=== PATIENT | female | born 1975 | race Caucasian/White ===

== ENCOUNTER → 2021-08-23 | Outpatient (CLI) | payer BC ==
[~2021-08-23] MED LIST: HYDR50CA3 PO
[2021-08-23 12:28] LABS: BASOPHILS % (AUTO) 0 % (0-10); EOSINOPHILS # (AUTO) 0.1 10^3/uL (0.0-0.3); EOSINOPHILS % (AUTO) 1 % (0-10); HEMATOCRIT 44 % (35-52); HEMOGLOBIN 14.5 g/dL (11.5-16.0); LYMPHOCYTES % (AUTO) 38 % (12-44); MEAN CORPUSCULAR HEMOGLOBIN 32 pg (25-34); MEAN CORPUSCULAR HGB CONC 33 g/dL (32-36); MEAN CORPUSCULAR VOLUME 96 fL (80-99); MEAN PLATELET VOLUME 10.1 fL (9.0-12.2); MONOCYTES # (AUTO) 0.4 10^3/uL (0.0-1.0); MONOCYTES % (AUTO) 8 % (0-12); NEUTROPHILS # (AUTO) 2.7 10^3/uL (1.8-7.8); NEUTROPHILS % (AUTO) 52 % (42-75); PLATELET COUNT 288 10^3/uL (130-400); WHITE BLOOD COUNT 5.2 10^3/uL (4.3-11.0)
[2021-08-23 12:28] LABS: BILIRUBIN,URINE NEGATIVE (NEGATIVE); CLARITY,URINE CLEAR; COLOR,URINE YELLOW; GLUCOSE, URINE (UA) NEGATIVE (NEGATIVE); KETONES,URINE NEGATIVE (NEGATIVE); LEUKOCYTE ESTERASE ,URINE NEGATIVE (NEGATIVE); NITRITE,URINE NEGATIVE (NEGATIVE); PROTEIN,URINE NEGATIVE (NEGATIVE)
[2021-08-23 12:58] LABS: BACTERIA,URINE TRACE /HPF; WBC,URINE 0-2 /HPF
== END ==
LOC: LABNPT 12:01
PROVIDERS: ATTEND Obstetrics & Gynecology
DX: N93.9 Abnormal uterine and vaginal bleeding, unspecified (principal); R10.2 Pelvic and perineal pain
CPT/HCPCS: 81000; 84443; 85025; 87491; 87591

== ENCOUNTER → 2021-08-30 | Outpatient (CLI) | payer BC ==
--- NOTE | 2021-08-30 17:03 | Diagnostic Imaging Report ---
PROCEDURE: US non-OB pelvis comp/trans. TECHNIQUE: Multiple realtime grayscale images were obtained of the pelvis in various projections, endovaginally. Transabdominal imaging was also performed. INDICATION: Abnormal uterine bleeding. COMPARISON: None. FINDINGS: The uterus measures 9.6 x 6.3 x 8.4 cm in size. It is anteverted. There is a heterogeneous region in the uterus measuring up to 2.1 cm in diameter, may represent a fibroid. This is located in the posterior wall of the lower uterus. The endometrium measures 9 mm in thickness which is within normal limits for a premenopausal female. There are numerous nabothian cysts. The right ovary measures 2.8 x 2.0 x 1.5 cm and the left ovary measures 2.0 x 0.8 x 1.6 cm. Blood flow is seen in the ovaries, bilaterally. No free fluid is seen. There is a pocket of fluid in the right adnexa which measures up to 6.0 x 2.0 x 2.1 cm in size. This appears to be distinct from the ovary. IMPRESSION: 1. No significant endometrial thickening. Heterogeneous lesion in the posterior uterus likely represents a fibroid. 2. Normal-appearing ovaries, bilaterally. 3. Area of fluid in the right adnexa appears distinct from the right ovary. This could represent a loop of fluid-filled bowel or lymphocele, less likely a distended fallopian tube or abscess. Dictated by: Dictated on workstation # [id number]
== END ==
LOC: RAD 13:47
PROVIDERS: ATTEND Obstetrics & Gynecology
DX: N93.9 Abnormal uterine and vaginal bleeding, unspecified (principal)
CPT/HCPCS: 76830; 76856

== ENCOUNTER 2021-10-08 05:33 | Outpatient (CLI) | payer BC ==
[~2021-10-08] VITALS: Ht 160 cm; Wt 76.4 kg
== END 2021-10-10 12:35 | disposition home or self-care (01) ==
LOC: PREOP 05:33
PROVIDERS: ATTEND Obstetrics & Gynecology
DX: Z01.818 Encounter for other preprocedural examination (principal)

== ENCOUNTER 2021-10-15 07:51 | Day surgery (SDC) | payer BC ==
[~2021-10-15] VITALS: Ht 160 cm; Wt 76.4 kg
[2021-10-15] VITALS (10 sets, daily range): BP systolic 105–130; BP diastolic 58–72
[2021-10-15] MEDS ORDERED: LACTATED RINGERS 1,000 ML IV PRN (08:15)
[2021-10-15 09:23] LABS: BASOPHILS % (AUTO) 0 % (0-10); EOSINOPHILS # (AUTO) 0.1 10^3/uL (0.0-0.3); EOSINOPHILS % (AUTO) 1 % (0-10); HEMATOCRIT 42 % (35-52); LYMPHOCYTES # (AUTO) 1.7 10^3/uL (1.0-4.0); LYMPHOCYTES % (AUTO) 33 % (12-44); MEAN CORPUSCULAR HEMOGLOBIN 32 pg (25-34); MEAN CORPUSCULAR HGB CONC 34 g/dL (32-36); MEAN CORPUSCULAR VOLUME 96 fL (80-99); MEAN PLATELET VOLUME 10.2 fL (9.0-12.2); MONOCYTES # (AUTO) 0.3 10^3/uL (0.0-1.0); MONOCYTES % (AUTO) 6 % (0-12); NEUTROPHILS # (AUTO) 3.2 10^3/uL (1.8-7.8); NEUTROPHILS % (AUTO) 60 % (42-75); PLATELET COUNT 267 10^3/uL (130-400); WHITE BLOOD COUNT 5.3 10^3/uL (4.3-11.0)
[2021-10-15] MEDS ORDERED: MIDAZOLAM 2 MG/2 ML (VERSED) VIAL ONE (09:31)
[2021-10-15] MEDS ORDERED: ONDANSETRON 4 MG/2 ML (SDV) Z0FRAN ONE (09:31)
[2021-10-15] MEDS ORDERED: proPOfol 200 MG/20 ML (DIPRIVAN) VIAL IV ONE (09:31)
[2021-10-15] MEDS ORDERED: fentaNYL INJ 100 MCG/2 ML AMP ONE (09:31)
[2021-10-15] MEDS ORDERED: LIDOCAINE PF 2% 5 ML (XYLOCAINE) VIAL ONE (09:31)
[2021-10-15] MEDS ORDERED: BUPIVACAINE 0.25% 10 ML (SENSORCAINE) VIAL ONE (09:51)
--- NOTE | 2021-10-15 10:05 | Progress Note-Pre Operative ---
Pre-Operative Progress Note H&P Reviewed The H&P was reviewed, patient examined and no changes noted. Date Seen by Provider: Oct 15, 2021 Time Seen by Provider: : Date H&P Reviewed: Oct 15, 2021 Time H&P Reviewed: : Pre-Operative Diagnosis: ARMANDO GALVIN DO Oct 15, 2021 10:05
[2021-10-15] MEDS ORDERED: IBUP-1773 PO (10:07)
--- NOTE | 2021-10-15 10:07 | Discharge Inst-Women's Service ---
Discharge Inst-Women's Serv Depart Medication/Instructions New, Converted or Re-Newed RX: Transmitted to Pharmacy Problems Reviewed?: Yes Consults/Follow Up Additional Follow Up: Yes Orders/Referrals Dr. Stratton in 10-14 days Activity Activity: Activity as Tolerated Driving Instructions: No Driving for 1 Week NO SMOKING: NO SMOKING Nothing Inside Vagina: No Douching, No Scenic, No Tampons Diet Discharge Diet: No Restrictions Symptoms to Report to : Bleeding Excessive, Pain Increased, Fever Over 101 Degrees F, Vaginal Bleeding Increase, Questions/Concerns For Any Problems or Questions: Contact Your Physician ARMANDO STRATTON DO Oct 15, 2021 10:07
[2021-10-15] MEDS ORDERED: D5 LR IV SOLUTION 1,000 ML IV SCH (10:15)
[2021-10-15] MEDS ORDERED: KETOROLAC 30 MG/ML VIAL IVP ONE (10:15)
[2021-10-15] MEDS ORDERED: ONDANSETRON 4 MG/2 ML (SDV) Z0FRAN IVP PRN ×2 (10:15→10:45)
[2021-10-15] MEDS ORDERED: SEVOFLURANE (ULTANE) 15 ML INHAL SOLN ONE (10:18)
[2021-10-15] MEDS ORDERED: morphine INJ 10 MG/ML 1ML (SYR OR VIAL) IVP ONE (10:45)
--- NOTE | 2021-10-15 12:17 | Anesthesia-General Post-Op ---
General Patient Condition Mental Status/LOC: Same as Preop Cardiovascular: Satisfactory Nausea/Vomiting: Absent Respiratory: Satisfactory Pain: Controlled Complications: Absent Post Op Complications Complications None Follow Up Care/Instructions Patient Instructions None needed. Anesthesia/Patient Condition Patient Condition Patient was doing well in PACU, no complaints, stable vital signs, no apparent adverse anesthesia problems. No complications reported per nursing. KUNAL LÓPEZ 27, 2022 12:17
--- NOTE | 2021-10-15 15:18 | OPERATIVE REPORT ---
DATE OF SERVICE: PREOPERATIVE DIAGNOSES: A 45-year-old female with abnormal uterine bleeding. POSTOPERATIVE DIAGNOSES: A 45-year-old female with abnormal uterine bleeding. PROCEDURE: D and C. SURGEON: Armando Stratton DO ANESTHESIA: LMA general. ESTIMATED BLOOD LOSS: Minimal. URINE OUTPUT: 100 mL drained at the start of the procedure. FLUIDS: 700 mL lactated Ringer's solution. FINDINGS: A grossly normal appearing external female genitalia. SPECIMEN SENT: Endometrial curettings. INDICATIONS FOR PROCEDURE: This is a 45-year-old female is a patient who had sought care in my office for abnormal uterine bleeding. She was seeking definitive measures as she had had conservative measures taken in the past without any benefit in her symptoms. I discussed with the patient need for endometrial sampling. I discussed other potential curative and diagnostic properties with doing a D and C versus endometrial biopsy in the office, the patient wished to proceed with D and C. Risks of the procedure were discussed with the patient in detail and after all of her questions were answered, consent was obtained, the patient was taken to the operating room. OPERATIVE REPORT IN DETAIL: Once in the operating room, anesthesia was found to be adequate. She was placed in the dorsal lithotomy position, prepped and draped in normal sterile fashion. Timeout was performed. The bladder was drained using straight catheterization. A weighted speculum inserted to the patient's vagina. Right angle retractor was used to visualize the cervix and 12 o'clock position using a long Allis clamp. I then performed paracervical block at 3 and 9 o'clock positions on the cervix. Care was taken to aspirate for injecting 5 mL of 0.25% Marcaine are injected at each site. I then gently sound the uterine cavity, depth was found to be 8 cm. I then gently dilated the cervix using Hanks dilators to maximum dilatation approximately 1 cm, at which point I performed a gentle curettage of all endometrial surfaces using a small endometrial curette. All of this tissue was collected and sent as endometrial curettings. I then removed all the instruments from the patient's vagina. The patient tolerated the procedure well and was taken to recovery area in stable condition. Lap and sponge counts were correct at the end of procedure. Instrument counts correct as well. Job ID: [id number] DocumentID: [id number] Dictated Date: 10/15/2021 10:38:56 Parking Line Painter Date: 10/15/2021 15:17:57 Dictated By: ARMANDO STRATTON DO
== END 2021-10-15 12:07 | disposition home or self-care (01) ==
LOC: SDC 07:51
PROVIDERS: ATTEND Obstetrics & Gynecology
DX: N85.00 Endometrial hyperplasia, unspecified (principal); D25.0 Submucous leiomyoma of uterus; F17.210 Nicotine dependence, cigarettes, uncomplicated; E66.9 Obesity, unspecified; Z68.29 Body mass index [BMI] 29.0-29.9, adult
CPT/HCPCS: 36415; 84703; 85025; 86850; 86900; 86901; 87081

== ENCOUNTER → 2021-12-10 | Outpatient (CLI) | payer BC ==
[~2021-12-10] MED LIST changes: +IBUP-1773 PO
== END | disposition home or self-care (01) ==
LOC: PREOP 05:27
PROVIDERS: ATTEND Obstetrics & Gynecology
DX: Z01.818 Encounter for other preprocedural examination (principal)

== ENCOUNTER 2021-12-17 05:37 | Day surgery (SDC) | payer BC ==
[~2021-12-17] VITALS: Ht 160 cm; Wt 72.6 kg
[2021-12-17] VITALS (13 sets, daily range): BP systolic 98–154; BP diastolic 54–88
[2021-12-17] MEDS ORDERED: BUPIVACAINE 0.25% 30 ML (SENSORCAINE) VIAL ONE (06:22)
[2021-12-17] MEDS ORDERED: ceFAZolin INJECTION 2,000 MG in NS (IVPB) 50 ML IV SCH (06:30)
[2021-12-17] MEDS ORDERED: metroNIDAZOLE 500MG/100ML IVPB 100 ML IV ONE (06:30)
[2021-12-17] MEDS: LACTATED RINGERS 1,000 ML IV PRN ×3 (06:36→09:18)
[2021-12-17 06:55] LABS: BASOPHILS % (AUTO) 0 % (0-10); EOSINOPHILS # (AUTO) 0.1 10^3/uL (0.0-0.3); EOSINOPHILS % (AUTO) 2 % (0-10); HEMATOCRIT 45 % (35-52); HEMOGLOBIN 15.4 g/dL (11.5-16.0); LYMPHOCYTES # (AUTO) 1.8 10^3/uL (1.0-4.0); LYMPHOCYTES % (AUTO) 34 % (12-44); MEAN CORPUSCULAR HEMOGLOBIN 32 pg (25-34); MEAN CORPUSCULAR HGB CONC 35 g/dL (32-36); MEAN CORPUSCULAR VOLUME 94 fL (80-99); MONOCYTES # (AUTO) 0.4 10^3/uL (0.0-1.0); MONOCYTES % (AUTO) 8 % (0-12); NEUTROPHILS # (AUTO) 2.9 10^3/uL (1.8-7.8); NEUTROPHILS % (AUTO) 56 % (42-75); PLATELET COUNT 311 10^3/uL (130-400); WHITE BLOOD COUNT 5.2 10^3/uL (4.3-11.0)
[2021-12-17] MEDS ORDERED: BUPIVACAINE 0.25% 30 ML (SENSORCAINE) VIAL IJ ONE (06:55)
[2021-12-17] MEDS ORDERED: MIDAZOLAM 2 MG/2 ML (VERSED) VIAL ONE (07:00)
[2021-12-17] MEDS ORDERED: fentaNYL INJ 100 MCG/2 ML AMP ONE (07:00)
[2021-12-17] MEDS ORDERED: ceFAZolin 2 GM IV Premixed 50 ML IV ONE (07:00)
--- NOTE | 2021-12-17 07:22 | Discharge Inst-Women's Service ---
Discharge Inst-Women's Serv Depart Medication/Instructions New, Converted or Re-Newed RX: Transmitted to Pharmacy Problems Reviewed?: Yes Consults/Follow Up Additional Follow Up: Yes Orders/Referrals Dr. Armstrong/Trinity in 7-10 days and in 8 weeks Activity Activity: Activity as Tolerated Driving Instructions: No Driving for 1 Week NO SMOKING: NO SMOKING Nothing Inside Vagina: No Douching, No [place], No Tampons Diet Discharge Diet: No Restrictions Symptoms to Report to : Bleeding Excessive, Pain Increased, Fever Over 101 Degrees F, Vaginal Bleeding Increase, Questions/Concerns For Any Problems or Questions: Contact Your Physician Skin/Wound Care Infection Signs and Symptoms: Increased Redness, Foul Odor of Wound, Increased Drainage, Skin Itchy or Has a Rash, Increased Swelling, Temperature Above 101 F Operative Area Clean and Dry: Keep Incision Clean/Dry Stitches/Keira/Dermabond: Dermabond, Care of Stitches Bathing Instructions: ARMANDO Muñoz DO Dec 17, 2021 07:22
[2021-12-17] MEDS ORDERED: HYDR-34 PO (07:24)
[2021-12-17] MEDS ORDERED: SIME80TA16 PO (07:24)
[2021-12-17] MEDS ORDERED: IBUP-844 PO (07:24)
[2021-12-17] MEDS ORDERED: DOCU100C37 PO (07:24)
[2021-12-17] MEDS ORDERED: SIMETHICONE 80 MG (MYLICON) CHEW PO PRN (07:30)
[2021-12-17] MEDS ORDERED: ONDANSETRON 4 MG/2 ML (SDV) Z0FRAN IV PRN (07:30)
[2021-12-17] MEDS ORDERED: DOCUSATE SODIUM 100 MG (COLACE) CAP PO PRN (07:30)
[2021-12-17] MEDS ORDERED: LACTATED RINGERS 1,000 ML IV SCH (07:30)
[2021-12-17] MEDS ORDERED: HYDROcodone/APAP 7.5 MG/325 MG (LORTAB, LORCET PLUS) TABLET PO PRN (07:30)
[2021-12-17] MEDS ORDERED: ANTACID SUSP 30 ML UDC (MYLANTA) PO PRN (07:30)
[2021-12-17] MEDS ORDERED: ZOLPIDEM 5 MG (AMBIEN) TAB PO PRN (07:30)
[2021-12-17] MEDS ORDERED: CEPACOL SORE THROAT-COUGH LOZENGE MM PRN (07:30)
[2021-12-17] MEDS ORDERED: KETOROLAC 30 MG/ML VIAL IVP PRN (07:30)
[2021-12-17] MEDS ORDERED: GLYCOPYRROLATE 0.2 MG/ML (ROBINUL) 2 ML VIAL ONE (08:33)
[2021-12-17] MEDS ORDERED: KETOROLAC 30 MG/ML VIAL ONE ×2 (08:33→09:10)
[2021-12-17] MEDS ORDERED: LIDOCAINE PF 1% 5 ML (XYLOCAINE) AMP ONE (08:33)
[2021-12-17] MEDS ORDERED: ONDANSETRON 4 MG/2 ML (SDV) Z0FRAN ONE (08:33)
[2021-12-17] MEDS ORDERED: proPOfol 200 MG/20 ML (DIPRIVAN) VIAL IV ONE ×2 (08:33→10:50)
[2021-12-17] MEDS ORDERED: NEOSTIGMINE (BLOXIVERZ ) 1 MG/1ML 10 ML VIAL ONE (08:33)
[2021-12-17] MEDS ORDERED: PROMETHAZINE INJ 25 MG/ML (PHENERGAN) AMP ONE (09:10)
[2021-12-17] MEDS ORDERED: SEVOFLURANE (ULTANE) 15 ML INHAL SOLN ONE (09:11)
[2021-12-17] MEDS ORDERED: PROMETHAZINE INJ 25 MG/ML (PHENERGAN) AMP IVP ONE (09:15)
[2021-12-17] MEDS ORDERED: morphine INJ 10 MG/ML 1ML (SYR OR VIAL) IVP ONE (09:15)
[2021-12-17] MEDS: ONDANSETRON 4 MG/2 ML (SDV) Z0FRAN IVP PRN ×2 (09:19→09:40)
--- NOTE | 2021-12-17 09:29 | Anesthesia-General Post-Op ---
General Patient Condition Mental Status/LOC: Same as Preop Cardiovascular: Satisfactory Nausea/Vomiting: Absent Respiratory: Satisfactory Pain: Controlled Complications: Absent Post Op Complications Complications None Follow Up Care/Instructions Patient Instructions None needed. Anesthesia/Patient Condition Patient Condition Patient is doing well, no complaints, stable vital signs, no apparent adverse anesthesia problems. No complications reported per nursing. JOSEPH ROSA CRNA Dec 17, 2021 09:29
--- NOTE | 2021-12-17 10:03 | OPERATIVE REPORT ---
DATE OF SERVICE: PREOPERATIVE DIAGNOSES: 1. A 45-year-old female with abnormal uterine bleeding -- menorrhagia. 2. Endometrial hyperplasia without atypia. POSTOPERATIVE DIAGNOSES: 1. A 45-year-old female with abnormal uterine bleeding -- menorrhagia. 2. Endometrial hyperplasia without atypia. PROCEDURES PERFORMED: Robotic-assisted total laparoscopic hysterectomy with bilateral salpingectomy. SURGEON: Abraham Armstrong DO. FARM MACHINERY SET UP MECHANIC: Trinity Worthington DNP, who was necessary for manipulation and retraction throughout the procedure. ANESTHESIA: General endotracheal. ESTIMATED BLOOD LOSS: Minimal. URINE OUTPUT: 50 mL clear at the end of the procedure. FLUIDS: 8010 mL of lactated Ringer's solution. FINDINGS: Grossly normal-appearing external female genitalia, grossly normal-appearing uterus, bilateral fallopian tubes and ovaries. SPECIMEN SENT: Uterus and bilateral fallopian tubes. INDICATIONS FOR PROCEDURE: This 45-year-old female is a patient, who had sought care in my office with painful heavy bleeding that was irregular in nature and was very heavy as well. Endometrial biopsy revealed endometrial hyperplasia. I discussed with the patient more conservative measures; however, she wishes to proceed with more definitive measures, especially with the risk of endometrial cancer. Risks of the procedure were discussed with the patient in detail including risk of bleeding, infection, damage to surrounding structures including, but not limited to bowel, bladder, ureter, kidneys, possible need for reoperation, postoperative complications that may occur, risk from anesthesia, recovery timeframe, hospitalization, and even . After everything was discussed with the patient in detail, consent was obtained in the preoperative area, and the patient was taken to the operating room. OPERATIVE REPORT IN DETAIL: Once in the operating room, general anesthesia was found to be adequate, she was placed in a dorsal lithotomy position, prepped and draped in a normal sterile fashion. A timeout was performed. Vaughn catheter was placed using sterile technique. A weighted speculum was inserted in the patient's vagina. Right angle retractor was used to visualize the cervix, which was grasped at 12 o'clock position using a long Allis clamp and 0 Vicryl suture was then placed in the anterior lip of the cervix and the Allis clamp was removed. I then used the suture as my retraction point. The uterus was then sounded and found to have a cavity depth of 8 cm. I selected 8 cm Alpa uterine manipulator tip and a 3.5 cm colpotomy ring. The manipulator tip was advanced into the uterus and the balloon was deployed and the colpotomy ring was advanced around the vaginal fornix, where I then performed a change of gloves. After I removed all the other instruments from the patient's vagina and took my attention to the abdomen, where subcostally at the midclavicular line, I introduced the Veress needle until intraperitoneal placement was confirmed using a saline drop test. An opening pressure of 5 mmHg as noted, I proceeded to maximum pressure of 15 mmHg using CO2 gas, at which point, I made an infraumbilical incision with a knife. This was an 8 mm incision and directed 8 mm blunt laparoscopic da Johnathon camera trocar through the incision until intraperitoneal placement was confirmed using the da Johnathon laparoscope. There was no evidence of damage upon my entry site. There was no evidence of damage to the left upper quadrant. The Veress needle entry site and the Veress was removed at that point. I then placed the patient in a steep Trendelenburg, where I am able to visualize all my pelvic anatomy as defined in my findings above. I placed two lateral trocars. These were both 8 mm trocars approximately 8 cm lateral to my infraumbilical trocar. Once both these trocars were in place, I brought in the da Ojhnathon robot and docked in appropriate fashion placing the single device in left hand and monopolar wesley in the right hand. I performed the following dissection bilaterally starting at the uteroovarian ligament, I sealed and transected this using a SynchroSeal device. I then created a window in the mesosalpinx and took this laterally down the mesosalpinx amputating the fallopian tube from its surrounding blood supply. I then proceeded with sealing and transecting the round ligament using the SynchroSeal device. This allows me to seal and transect the broad ligament down to the level of the lower uterine segment, at which point, I the anterior and posterior leaves of the broad ligament, anterior leaflet was taken around the anterior vaginal fornix and posterior leaflets was taken around the posterior vaginal fornix. This allowed me to skeletonize the uterine vessels laterally, which I sealed and transected using the single device. I then created a colpotomy at 12 o'clock position using monopolar wesley and took this circumferentially around the vaginal fornix amputating the cervix away from the vagina. The entire specimen was then removed through the vagina. I then closed the lateral apices of the vaginal cuff using 2-0 Vicryl suture in a [id number] fashion, colposuspending them to the uterosacral ligaments. I then closed the remainder of the vaginal cuff using 2-0 V-Loc in a running fashion, after which, there was no active bleeding noted from any of my dissection planes. I then undocked the da Johnathon robot and proceeded with remainder of the case laparoscopically and copiously irrigated the pelvis using normal saline. Once again, there was no active bleeding noted from any of my dissection planes. I placed Surgiflo hemostatic agent over all my planes of dissection. I had the patient taken out of steep Trendelenburg, where I released insufflation and introduced 10 mL of 0.25% Marcaine into peritoneal cavity for postoperative pain management through the infraumbilical trocar site. The lateral trocars were removed under direct visualization of the laparoscope. The infraumbilical trocar was then removed as well. The skin reapproximated using 4-0 Monocryl in interrupted subcuticular stitches. Dermabond was applied to the incisions and Band-Aids were placed over the incisions as well. Vaughn catheter was left in place. Two grams of Ancef and 500 mg of Flagyl were given preoperatively for infection prophylaxis. Job ID: [id number] DocumentID: [id number] Dictated Date: 12/17/2021 09:01:12 Toe Laster Date: 12/17/2021 10:02:12 Dictated By: DO TAYLOR ALVARENGA
[2021-12-17] MEDS ORDERED: TRANEXAMIC ACID 100 MG/ML 10 ML INJECTION ONE (10:50)
[2021-12-22] MEDS ORDERED: IBUPROFEN 600 MG (MOTRIN) TAB PO SCH (12:00)
== END 2021-12-17 15:00 | disposition home or self-care (01) ==
LOC: SDC 05:37 → WS 09:04 → SDC 15:00
PROVIDERS: ATTEND Obstetrics & Gynecology
DX: D25.1 Intramural leiomyoma of uterus (principal); N70.11 Chronic salpingitis; N73.6 Female pelvic peritoneal adhesions (postinfective); N85.02 Endometrial intraepithelial neoplasia [EIN]; F17.210 Nicotine dependence, cigarettes, uncomplicated
CPT/HCPCS: 36415; 84703; 85025; 86850; 86900; 86901; 87081